=== PATIENT | female | born 1990 | race Caucasian/White ===

== ENCOUNTER 2017-04-04 13:14 | Emergency (ER) | payer OTHER ==
--- NOTE | 2017-04-04 13:34 | ER Document Report ---
ED Medical Screen (RME) - General Chief Complaint: Post Surgical Pain Stated Complaint: TINGLING IN LEGS,LIGHTHEADED Time Seen by Provider: 04/04/17 13:29 Mode of Arrival: Wheelchair Information source: Patient Notes: 27 yo fe,a;e s/p lap robotic hysterectomy with general anesthesia here at [facility]. by dr. ocampo ([place]) for menorrhagia and Leep hx. Told to come in due to posterior right calf pain that started an hour ago, pinching and tingling in whole right leg, both legs got warm and tingling on way here, also c/o lightheadedness /dizziness for 2 days, with blurring in right eye on way here. They wanted her to be checked for DVT. TRAVEL OUTSIDE OF THE [place] IN LAST 30 DAYS: No - Related Data Allergies/Adverse Reactions: acetaminophen [From Percocet] Allergy (Verified 04/04/17 13:22) oxycodone [From Percocet] Allergy (Verified 04/04/17 13:22) Past Medical History - Past Medical History Cardiac Medical History: Denies: Hx Coronary Artery Disease, Hx Heart Attack, Hx Hypertension Pulmonary Medical History: Denies: Hx Asthma, Hx Bronchitis, Hx COPD, Hx Pneumonia Neurological Medical History: Denies: Hx Cerebrovascular Accident, Hx Seizures Endocrine Medical History: Denies: Hx Diabetes Mellitus Type 1, Hx Diabetes Mellitus Type 2 Renal/ Medical History: Denies: Hx Peritoneal Dialysis Musculoskeltal Medical History: Denies Hx Arthritis - Immunizations Hx Diphtheria, Pertussis, Tetanus Vaccination: Yes - 12/09/12 Physical Exam - Vital signs Vitals: Temp Pulse Resp BP Pulse Ox 97.9 F 79 22 H 127/89 H 100 04/04/17 13:22 04/04/17 13:22 04/04/17 13:22 04/04/17 13:22 04/04/17 13:22 Course - Vital Signs Vital signs: Temp Pulse Resp BP Pulse Ox 97.9 F 79 22 H 127/89 H 100 04/04/17 13:22 04/04/17 13:22 04/04/17 13:22 04/04/17 13:22 04/04/17 13:22
[2017-04-04] MEDS ORDERED: LORAZEPAM 1 MG TABLET PO ONE (13:40)
[2017-04-04 14:12] LABS: ABSOLUTE EOSINOPHILS # (AUTO) 0.2 10^3/uL (0.0-0.6); ABSOLUTE LYMPHOCYTES (AUTO) 2.7 10^3/uL (0.5-4.7); ABSOLUTE MONOCYTES (AUTO) 0.4 10^3/uL (0.1-1.4); BASOPHILS % (AUTO) 0.5 % (0-2); EOSINOPHILS % (AUTO) 2.4 % (0-6); HEMATOCRIT 37.9 % (36.0-47.0); HEMOGLOBIN 12.9 g/dL (12.0-15.5); HGB HCT DIFFERENCE 0.8; LYMPHOCYTES % (AUTO) 42.6 % (13-45); MEAN CORPUSCULAR HEMOGLOBIN 30.9 pg (27.0-33.4); MEAN CORPUSCULAR HGB CONC 33.9 g/dL (32.0-36.0); MEAN CORPUSCULAR VOLUME 91 fl (80-97); RED BLOOD COUNT 4.16 10^6/uL (3.72-5.28); RED CELL DISTRIBUTION WIDTH 13.3 % (11.5-14.0); SEGMENTED NEUTROPHILS % (AUTO) 47.5 % (42-78); WHITE BLOOD COUNT 6.3 10^3/uL (4.0-10.5)
[2017-04-04 14:16] LABS: PROTHROMBIN TIME 12.3 SEC (11.4-15.4)
[2017-04-04 14:17] LABS: PARTIAL THROMBOPLASTIN TIME 27.5 SEC (23.5-35.8)
[2017-04-04 14:19] LABS: AMORPHOUS SEDIMENT,URINE TRACE /HPF; APPEARANCE,URINE SLIGHTLY-CLOUDY; BILIRUBIN,URINE NEGATIVE (NEGATIVE); GLUCOSE, URINE NEGATIVE (NEGATIVE); KETONES,URINE NEGATIVE (NEGATIVE); LEUKOCYTE ESTERASE,URINE NEGATIVE (NEGATIVE); NITRITE,URINE NEGATIVE (NEGATIVE); PROTEIN,URINE NEGATIVE (NEGATIVE); URINE SPECIFIC GRAVITY 1.011
[2017-04-04 14:33] LABS: ALANINE AMINOTRANSFERASE 27 U/L (9-52); ALBUMIN 4.3 g/dL (3.5-5.0); ALKALINE PHOSPHATASE 55 U/L (38-126); ANION GAP 12 (5-19); ASPARTATE AMINO TRANSFERASE 21 U/L (14-36); BILIRUBIN,DIRECT 0.3 mg/dL (0.0-0.4); BILIRUBIN,TOTAL 0.4 mg/dL (0.2-1.3); BLOOD UREA NITROGEN 11 mg/dL (7-20); CALCIUM 9.6 mg/dL (8.4-10.2); CARBON DIOXIDE 28 mmol/L (22-30); CHLORIDE 102 mmol/L (98-107); CREATININE RESULT 0.71 mg/dL (0.52-1.25); GLUCOSE 86 mg/dL (75-110); POTASSIUM 3.9 mmol/L (3.6-5.0); TOTAL PROTEIN 6.7 g/dL (6.3-8.2)
--- NOTE | 2017-04-04 15:18 | ER Document Report ---
ED General - General Chief Complaint: Post Surgical Pain Stated Complaint: TINGLING IN LEGS,LIGHTHEADED Time Seen by Provider: 04/04/17 13:29 Mode of Arrival: Wheelchair Information source: Patient Notes: 27 yo female c/o sudden onset right calf pain like a bee sting when got back into car after shopping at [employer] [place], then got warm and tingling. Called her surgeon who did Laphyst robotic by dr. ocampo ([facility] ) at [facility]. Worried it was a blood clot, got anxious, worried, crying in triage, had blurring-glowing bright eye and felt like cheeks were pulling down (normal facial movements in triage) . "panic set int" I gave her Ativan 1mg in triage. Vision normal now, still has the burning/tingling feeling posterior calf to knee. No shortness of breath, mild soreness to abdomen. Thinks she lieft the hospital too early and is having to clean up at home. No fever or chills. 3 kids. Spouse can pick her up. TRAVEL OUTSIDE OF THE [place] IN LAST 30 DAYS: No - Related Data Allergies/Adverse Reactions: acetaminophen [From Percocet] Allergy (Verified 04/04/17 13:22) oxycodone [From Percocet] Allergy (Verified 04/04/17 13:22) Past Medical History - General Information source: Patient - Social History Smoking Status: Unknown if Ever Smoked Frequency of alcohol use: None Drug Abuse: None Lives with: Spouse/Significant other Family History: Reviewed & Not Pertinent Patient has suicidal ideation: No Patient has homicidal ideation: No Renal/ Medical History: Denies: Hx Peritoneal Dialysis Musculoskeltal Medical History: Denies Hx Arthritis Surgical Hx: Negative - Immunizations Hx Diphtheria, Pertussis, Tetanus Vaccination: Yes - 12/09/12 Review of Systems - Review of Systems Constitutional: No symptoms reported EENT: See HPI Cardiovascular: No symptoms reported Respiratory: No symptoms reported Gastrointestinal: No symptoms reported Genitourinary: No symptoms reported Female Genitourinary: No symptoms reported Musculoskeletal: See HPI Skin: No symptoms reported Hematologic/Lymphatic: No symptoms reported Neurological/Psychological: See HPI Physical Exam - Vital signs Vitals: Temp Pulse Resp BP Pulse Ox 97.9 F 79 22 H 127/89 H 100 04/04/17 13:22 04/04/17 13:22 04/04/17 13:22 04/04/17 13:22 04/04/17 13:22 Interpretation: Normal - General General appearance: Appears well, Alert In distress: None - HEENT Head: Normocephalic, Atraumatic Eyes: Normal Conjunctiva: Normal Pupils: PERRL Anterior chamber: Normal Fundascopic: Normal Tympanic membrane: Normal Nasal: Normal Mouth/Lips: Normal Mucous membranes: Normal Neck: Normal, Supple. No: Lymphadenopathy - Respiratory Respiratory status: No respiratory distress Chest status: Nontender Breath sounds: Normal Chest palpation: Normal - Cardiovascular Rhythm: Regular Heart sounds: Normal auscultation Murmur: No - Abdominal Inspection: Normal Distension: No distension Bowel sounds: Normal Tenderness: Tender - minimal tender without mass at the laparpscopy sites, no infection Organomegaly: No organomegaly - Back Back: Normal, Nontender. No: Tender - Extremities General upper extremity: Normal inspection, Nontender, Normal color, Normal ROM , Normal temperature General lower extremity: Normal inspection, Nontender, Normal color, Normal ROM , Normal temperature, Normal weight bearing. No: Sara's sign Calf: Nontender, Other - not hot , not red. No: Deformity, Ecchymosis, Unable to bear weight - Neurological Neuro grossly intact: Yes Cognition: Normal Orientation: AAOx4 Tim Coma Scale Eye Opening: Spontaneous Tim Coma Scale Verbal: Oriented Tim Coma Scale Motor: Obeys Commands Tim Coma Scale Total: 15 Speech: Normal Cerebellar coordination: Normal Motor strength normal: LUE, RUE, LLE, RLE Sensory: Normal - Psychological Associated symptoms: Normal affect, Normal mood - Skin Skin Temperature: Warm Skin Moisture: Dry Skin Color: Normal Course - Re-evaluation Re-evalutation: 04/04/17 16:40 The hydrocodone did not cause itching and it has helped relieve the pain. Lab and venous Doppler ultrasound are negative 04/04/17 16:47 - Vital Signs Vital signs: Temp Pulse Resp BP Pulse Ox 97.9 F 79 22 H 127/89 H 100 04/04/17 13:22 04/04/17 13:22 04/04/17 13:22 04/04/17 13:22 04/04/17 13:22 - Laboratory Result Diagrams: 04/04/17 13:50 04/04/17 13:50 Laboratory results interpreted by me: 04/04/17 13:55 Urine Urobilinogen 4.0 H Discharge - Discharge Clinical Impression: mild lap incision tenderness, right calf pain, episode of anxiety, Paresthesia of right leg Condition: Good Disposition: HOME, SELF-CARE Instructions: Abdominal Pain ([facility]), Myalagia (Muscle Pain) ([facility]) Additional Instructions: warm compress to er if worse hydrocodone for pain tonight see your surgeon for follow up copy of imaging and labs given to you Please complete the patient satisfaction survey if you get one, and return it.. If you do not receive a survey, then you can go to the [facility] website, [email or web address] and place your comments about your very good care. Thank you very much. It was a pleasure being your medical provider today. Prescriptions: Hydrocodone Bit/Acetaminophen [Hydrocodon-Acetaminophen 5-325] 1 each PO Q4HP PRN #10 tablet PRN Reason:
[2017-04-04] MEDS ORDERED: HYDROCODONE/ACETAMINOPHEN 5-325 MG TABLET PO ONE (15:29)
[2017-04-04 18:20] VITALS: BP 120/78
== END 2017-04-04 17:25 | disposition home or self-care (01) ==
LOC: ER 13:14
DX: M79.661 Pain in right lower leg (principal); Z98.890 Other specified postprocedural states; R20.2 Paresthesia of skin; F41.9 Anxiety disorder, unspecified; Z88.5 Allergy status to narcotic agent; Z88.6 Allergy status to analgesic agent
CPT/HCPCS: 36415; 80053; 81001; 84703; 85025; 85610; 85730; 87086; 87088; 87186; 93971; 99284

== ENCOUNTER 2017-09-01 18:21 | Emergency (ER) | payer OTHER ==
[2017-09-01] MEDS ORDERED: NORMAL SALINE 1000 ML 1,000 ML IV ONE (19:14)
[2017-09-01 20:28] LABS: ABSOLUTE LYMPHOCYTES (AUTO) 0.9 10^3/uL (0.5-4.7); ABSOLUTE MONOCYTES (AUTO) 0.4 10^3/uL (0.1-1.4); ABSOLUTE NEUT (AUTO) 3.1 10^3/uL (1.7-8.2); BASOPHILS % (AUTO) 0.4 % (0-2); EOSINOPHILS % (AUTO) 1.1 % (0-6); HEMATOCRIT 35.4 % (36.0-47.0); HEMOGLOBIN 12.4 g/dL (12.0-15.5); HGB HCT DIFFERENCE 1.8; LYMPHOCYTES % (AUTO) 20.5 % (13-45); MEAN CORPUSCULAR HEMOGLOBIN 31.7 pg (27.0-33.4); MEAN CORPUSCULAR HGB CONC 34.9 g/dL (32.0-36.0); MEAN CORPUSCULAR VOLUME 91 fl (80-97); MONOCYTES % (AUTO) 7.9 % (3-13); RED CELL DISTRIBUTION WIDTH 13.5 % (11.5-14.0); SEGMENTED NEUTROPHILS % (AUTO) 70.1 % (42-78); WHITE BLOOD COUNT 4.5 10^3/uL (4.0-10.5)
[2017-09-01 20:42] LABS: ALANINE AMINOTRANSFERASE 30 U/L (9-52); ALBUMIN 4.1 g/dL (3.5-5.0); ALKALINE PHOSPHATASE 55 U/L (38-126); ANION GAP 9 (5-19); ASPARTATE AMINO TRANSFERASE 34 U/L (14-36); BILIRUBIN,DIRECT 0.3 mg/dL (0.0-0.4); BILIRUBIN,TOTAL 0.6 mg/dL (0.2-1.3); BLOOD UREA NITROGEN 12 mg/dL (7-20); CALCIUM 8.9 mg/dL (8.4-10.2); CARBON DIOXIDE 27 mmol/L (22-30); CHLORIDE 105 mmol/L (98-107); CREATININE RESULT 0.61 mg/dL (0.52-1.25); GLUCOSE 91 mg/dL (75-110); POTASSIUM 3.9 mmol/L (3.6-5.0); SODIUM 140.6 mmol/L (137-145); TOTAL PROTEIN 6.8 g/dL (6.3-8.2)
--- NOTE | 2017-09-01 20:46 | RADIOLOGY REPORT (SQ) ---
EXAM DESCRIPTION: CHEST PA/LAT COMPLETED DATE/TIME: 09/01/2017 8:38 pm REASON FOR STUDY: cough COMPARISON: None. EXAM PARAMETERS: NUMBER OF VIEWS: two views TECHNIQUE: Digital Frontal and Lateral radiographic views of the chest acquired. RADIATION DOSE: NA LIMITATIONS: none FINDINGS: LUNGS AND PLEURA: No opacities, masses or pneumothorax. No pleural effusion. MEDIASTINUM AND HILAR STRUCTURES: No masses or contour abnormalities. HEART AND VASCULAR STRUCTURES: Heart normal size. No evidence for failure. BONES: No acute findings. HARDWARE: None in the chest. OTHER: No other significant finding. IMPRESSION: NO SIGNIFICANT RADIOGRAPHIC FINDING IN THE CHEST. TECHNICAL DOCUMENTATION: JOB ID: [id number] 2009 [employer]- All Rights Reserved
--- NOTE | 2017-09-01 21:06 | ER Document Report ---
ED Respiratory Problem - General Chief Complaint: Cough Stated Complaint: DIFFICULTY BREATHING Time Seen by Provider: 09/01/17 19:04 Mode of Arrival: Ambulatory Information source: Patient Notes: Patient is a 27-year-old female comes to emergency room complaining of fast heart rate and short of breath. Patient states that it hurts to breathe when she takes a deep breath. She thinks "I may have pneumonia" has a history of pneumonias in the distant past. She denies any sick contacts she does not smoke she has been around nobody with pneumonia or upper respiratory problems. She does admit to having some body aches and some congestion with a runny nose. She also denies smoking she is currently on no hormones and has not taken any long trips. She did have a coughing spell today and coughed up a little yellow sputum. TRAVEL OUTSIDE OF THE [place] IN LAST 30 DAYS: No - HPI Patient complains to provider of: Hurts to breath, Short of breath Quality of pain: Achy, Throbbing Severity: Moderate Pain Level: 2 Context: denies: Malignancy, , Recent cardiac event, Recent foreign travel, Recent long distance trvl, Recent immobilization, Recent surgery, Smoker Short of Breath: Moderate Chest pain/discomfort: Constant, Intermittent Cough: Productive Sputum amount: Scant Sputum color: Yellow At home treatment: denies: Bronchodilators, CPAP, Oral steroids, Oxygen, Singulair, Theophylline EMS treatments: No: Bronchodilators Associated symptoms: Congestion, Cough, Difficulty breathing, Runny nose, Short of breath, Wheezing Similar symptoms previously: No Recently seen / treated by doctor: No - Related Data Allergies/Adverse Reactions: acetaminophen [From Percocet] Allergy (Verified 09/01/17 18:38) oxycodone [From Percocet] Allergy (Verified 09/01/17 18:38) Past Medical History - General Information source: Patient - Social History Smoking Status: Never Smoker Chew tobacco use (# tins/day): No Frequency of alcohol use: None Drug Abuse: None Family History: Reviewed & Not Pertinent - Past Medical History Cardiac Medical History: Denies: Hx Coronary Artery Disease, Hx Heart Attack, Hx Hypertension Pulmonary Medical History: Denies: Hx Asthma, Hx Bronchitis, Hx COPD, Hx Pneumonia Neurological Medical History: Denies: Hx Cerebrovascular Accident, Hx Seizures Endocrine Medical History: Denies: Hx Diabetes Mellitus Type 1, Hx Diabetes Mellitus Type 2 Renal/ Medical History: Denies: Hx Peritoneal Dialysis Musculoskeltal Medical History: Denies Hx Arthritis Past Surgical History: Reports: Hx Hysterectomy - Immunizations Hx Diphtheria, Pertussis, Tetanus Vaccination: Yes - 12/09/12 Review of Systems - Review of Systems Constitutional: Chills, Fever, Weakness EENT: Nose congestion, Sinus pressure Cardiovascular: Heart racing Respiratory: Cough, Short of breath Gastrointestinal: No symptoms reported Genitourinary: No symptoms reported Female Genitourinary: No symptoms reported Musculoskeletal: No symptoms reported Skin: No symptoms reported Hematologic/Lymphatic: No symptoms reported Neurological/Psychological: No symptoms reported -: Yes All other systems reviewed and negative Physical Exam - Vital signs Vitals: Temp Pulse Resp BP Pulse Ox 100 F 105 H 18 122/74 98 09/01/17 18:38 09/01/17 18:38 09/01/17 18:38 09/01/17 18:38 09/01/17 18:38 - General General appearance: Other - Uncomfortable appearing In distress: None - HEENT Head: Normocephalic, Atraumatic Eyes: Normal Ears: Normal External canal: Normal Tympanic membrane: Bulging Sinus: Frontal, Maxillary, Tenderness Nasal: Clear rhinorrhea Mouth/Lips: Normal Mucous membranes: Normal, Moist Pharynx: Erythema. No: Exudate, Peritonsillar abscess, Post nasal drainage, Retropharyngeal abscess, Tonsillar hypertrophy, Uvular edema, Potential airway comprom. Neck: Normal - Respiratory Respiratory status: No respiratory distress Chest status: Nontender Breath sounds: Normal. No: Rales, Rhonchi, Stridor, Wheezing Chest palpation: Normal - Cardiovascular Rhythm: Tachycardia Heart sounds: Normal auscultation Murmur: No - Abdominal Inspection: Normal Distension: No distension Bowel sounds: Normal Tenderness: Nontender. No: McBurney's point, Gaitan's sign, Guarding Organomegaly: No organomegaly - Neurological Neuro grossly intact: Yes Cognition: Normal Orientation: AAOx4 [place] Coma Scale Eye Opening: Spontaneous Tim Coma Scale Verbal: Oriented [place] Coma Scale Motor: Obeys Commands Tim Coma Scale Total: 15 - Skin Skin Temperature: Warm Skin Moisture: Dry Skin Color: Normal, [place] Skin Turgor: Elastic Course - Vital Signs Vital signs: Temp Pulse Resp BP Pulse Ox 100 F 105 H 18 122/74 98 09/01/17 18:38 09/01/17 18:38 09/01/17 18:38 09/01/17 18:38 09/01/17 18:38 - Laboratory Result Diagrams: 09/01/17 20:15 09/01/17 20:15 Laboratory results interpreted by me: 09/01/17 20:15 Hct 35.4 L Plt Count 142 L - Diagnostic Test Radiology results interpreted by me: 09/01/17 21:43 Chest x-rays were negative for any acute infiltrates. All labs were normal. - Transfer of Care Notes: 09/01/17 21:44 Had a discussion with patient that probably this can be more viral type of presentation with upper respiratory with some wheezing going on. At this point will put her on a small steroid taper and she will follow-up with her primary care on Sunday. Also informed her that should she have any concerns or problems if she become more short of breath she spikes a fever or begins having a productive cough to return to ER for a recheck. At this point I do not believe we need to put her on any antibiotics. Discharge - Discharge Clinical Impression: Wheeze Upper respiratory infection Qualifiers: URI type: unspecified URI Qualified Code(s): J06.9 - Acute upper respiratory infection, unspecified Condition: Stable Disposition: HOME, SELF-CARE Instructions: Acetaminophen, Upper Respiratory Illness ([facility]), Viral Syndrome ( [facility]) Additional Instructions: Upper Respiratory Illness You have a viral infection of the respiratory passages -- a "cold." This common infection causes nasal congestion, drainage, and often sore throat and cough. It is caused by a virus and is highly contagious. The disease usually lasts a week or more, though the worst symptoms are usually over in 3 or 4 days. There is no "cure" for the viral infection -- it must run its course. If there is a complication, such as bacterial infection in the nose, sinuses, middle ear, or bronchial tubes, antibiotics may be required, but antibiotics won 't affect the virus. If you smoke, you should STOP!! Drink plenty of fluids. A humidifier may help. An expectorant medication or decongestant may make you more comfortable. Use acetaminophen or ibuprofen for fever or aches. See the doctor if fever persists over two or three days, if there is any significant worsening of your symptoms, or if you simply fail to improve as expecte Home and rest. As we discussed and will place you on some steroid taper for the slight wheeze that you have on inspiratory and expiratory. Do not believe we need to place her on antibiotics at this time. Should you have any concerns or problems return here for a recheck should he spike a fever or have any continuing tachycardia return to ER for a recheck. Prescriptions: Prednisone [Sterapred Ds] 10 mg PO DAILY 6 Days #1 [id number] Forms: Elevated Blood Pressure
[2017-09-01] MEDS ORDERED: DEXAMETHASONE SOD PHOS INJ 10 MG/1 ML VIAL IV ONE (21:50)
[2017-09-01 22:24] VITALS: BP 113/69
== END 2017-09-01 22:24 | disposition home or self-care (01) ==
LOC: ER 18:21
DX: J06.9 Acute upper respiratory infection, unspecified (principal); R06.2 Wheezing; R06.02 Shortness of breath; R07.1 Chest pain on breathing; R05 Cough; R09.89 Other specified symptoms and signs involving the circulatory and respiratory systems; F50.9 Eating disorder, unspecified; R53.1 Weakness; J34.89 Other specified disorders of nose and nasal sinuses; Z87.01 Personal history of pneumonia (recurrent); Z88.5 Allergy status to narcotic agent
CPT/HCPCS: 99284; 96361; 96374; 36415; 85025; 86308; 80053; 71020; J7030; J1100